=== PATIENT | male | born 2000 | race Caucasian/White ===

== ENCOUNTER 2021-01-09 17:54 | Emergency (ER) | payer OTHER ==
[~2021-01-09] VITALS: Ht 167.6 cm; Wt 69.9 kg
[2021-01-09 17:55] VITALS: BP 139/86
--- NOTE | 2021-01-09 18:58 | REP ---
INDICATION: trauma. COMPARISON: None. TECHNIQUE: Four views of the right elbow are obtained. FINDINGS: Four views of the right elbow demonstrate several os of extract Jhony adjacent to the lateral epicondyle which are well corticated. However, there is associated soft tissue swelling and there is a positive fat pad sign consistent with joint effusion or hemarthrosis. Suspect old injury lateral collateral ligament and chronic lateral epicondylitis, possibly with recent avulsion injury. No proximal radial or ulnar fracture is seen. No supracondylar fracture or distal humeral fracture is apparent.. No opaque foreign body noted. IMPRESSION: Ossific densities and soft tissue swelling adjacent to the lateral epicondyle question chronic epicondylitis and recent avulsion injury. There is evidence of hemarthrosis. No acute fracture is apparent.. <Electronically signed by Eric Chavarria > 01/09/21 [id number]
== END 2021-01-09 20:00 | disposition home or self-care (01) ==
LOC: M ED 17:54
DX: S59.901A Unspecified injury of right elbow, initial encounter (principal); W03.XXXA Other fall on same level due to collision with another person, initial encounter; M25.021 Hemarthrosis, right elbow; Y93.9 Activity, unspecified; Y92.009 Unspecified place in unspecified non-institutional (private) residence as the place of occurrence of the external cause; Y99.9 Unspecified external cause status

== ENCOUNTER 2023-11-27 11:50 | Emergency (ER) | payer OTHER ==
[~2023-11-27] VITALS: Ht 165.1 cm; Wt 77.1 kg
[2023-11-27] MEDS ORDERED: CIPR0.3S37 OS (14:49)
[2023-11-27 15:05] VITALS: BP 133/77; TEMP 97.6; O2SAT 99
== END 2023-11-27 15:07 | disposition home or self-care (01) ==
LOC: M ED 11:50
DX: H10.32 Unspecified acute conjunctivitis, left eye (principal); F17.210 Nicotine dependence, cigarettes, uncomplicated; Z79.2 Long term (current) use of antibiotics